=== PATIENT | female | born 1990 ===

== ENCOUNTER 2018-01-29 22:33 | Emergency (ER) | payer SELFPAY ==
[2018-01-29 23:39] VITALS: BMI 29.9
[2018-01-29 23:52] LABS: SQUAMOUS EPITHIAL 19 /hpf (0-5); URINE BACTERIA OCC (<OCC); URINE BILIRUBIN NEGATIVE (NEGATIVE); URINE BLOOD NEGATIVE (NEGATIVE); URINE CLARITY CLOUDY (Clear); URINE COLOR YELLOW (YELLOW); URINE GLUCOSE (UA) NEG (Normal); URINE LEUKOCYTE ESTERASE SMALL Leu/uL (Negative); URINE NITRATE NEGATIVE (NEGATIVE); URINE PROTEIN NEGATIVE (NEGATIVE); URINE UROBILINOGEN 0.2-1.0 mg/dL (0.2-1.0)
--- NOTE | 2018-01-30 03:12 | US ---
EXAM: US Retroperitoneal Limited, Renal CLINICAL HISTORY: 27 years old, female; Pain; Other: Back pain; ; Additional info: B/l flank pain(r>l) for 1 day TECHNIQUE: Real-time ultrasound of the retroperitoneum (limited) with image documentation. 28 images are submitted. COMPARISON: No relevant prior studies available. FINDINGS: Right kidney: The right kidney measures 9.5 x 4.9 x 5.8 cm. There is minimal fullness of right renal pelvis. No stones. Left kidney: The left kidney measures 10.3 x 5.4 x 4.4 cm. There is minimal fullness of left renal pelvis. No stones. Bladder: No bladder images are submitted. The bladder is not evaluated. The technologist will be contacted for additional images if required. As the technologist states bilateral ureteral jets were not seen. Other findings: Patient is 37 weeks with back pain. IMPRESSION: No acute findings. No bladder images are submitted. The bladder is not evaluated. The technologist will be contacted for additional images if required. As the technologist states bilateral ureteral jets were not seen. The technologist will be contacted. Additional images if there will be requested and an addendum will be added.
--- NOTE | 2018-01-30 04:00 | OBHP ---
Datetime: 01/29/2018 23:39 IP Adm Impression: , intrauterine ; No Active Labor IP Chief Complaint Other: abdominal pain and dysuria IP Admit Plan: Observation/Evaluation; Discharge home Admit Comment, IP Provider: 27 yo at 35.4 weeks GA based on LMP 05/25/17, C/W first trimester US, ANATOLY 03/01/18 presents to [facility] with c/o B/L lower abdominal pain, dysuria and flank pain (R>L) sinc e this morning. Denies any trauma to abdomen.Denies hematuria, fever, or chills. Pt reports she vomit s once a day which is normal for her pregnacy. Pt took 2 tylenol about 3 hours ago with no relief of pain. Reports +FM. Denies LOF, VB or CTX. Pt was treated for UTI in mid dec 2017 with macrobid 100 m g po bid for 7 days and states she completed the course. PNC: [facility] Past obhx: X 1 in 2014 at 40 weeks GA, baby's wt 7 lb 6oz w/o complication. Past gynhx; hx chlamydia in 2014 treated, neg pap on 08/04/17 Pmhx: denies pshx: denies social hx: denies smoking cigarettes, drinking EtOH or using drugs family hx: hx Down Syndrome in pt's cousin Medication: PNV Allergies: PCN Assessment: 27 yo IUP@ 35.4 weeks GA reports dysuria and abdominal pain x 1 day Plan: Continuous heart tracing UA and urine cx B/L renal US SVE: cervix is closed, thick and high Re-evaluate Sultan Willis, PGY-1 Pt seen and examined with on-call OB hospitalist Dr. Rivas OB Hospitalist Addendum: Pt seen and examined by me. Agree w/ above. 27 yo at 35+5 wks w/ c/o b/l lower abdominal pain and back pain since yesterday am. Pt also reports dysuria. Pt denie s VB, LOF, ctxns and reports FM. Pt's reports that she completed macrobid 2 weeks ago. UA 1 9 Sq epi. blood and nitrate neg, bacteria occ. Urine cx pending. Renal u/s w/ no acute findings. NS T reactive. Pt discharged home, has f/u appoint w/ clinic on 02/05/2018. (ES) Extremities - PN: Normal Lungs - PN: Normal Heart - PN: Normal Neurologic - PN: Normal HEENT - PN: Normal General - PN: Normal FHR - Baseline A Provider: 130s Membranes, Provider: Intact Contraction Comments Provider: None Comments, ACOG Physical Exam: SVE: cervix is closed, thick and high Abdomen: B/L lower lateral abdominal mild tenderness, likely ligaments stretch. No suprapubic tend erness. No guarding or rigidity. Mild right CVA tenderness. IP Hx Assessment: The History has been Reviewed and is Current Vital Signs Provider: Reviewed IP Chief Complaint: Maternal discomfort; Other NICHD Variability Prov Fetus A: Moderate 6-25bpm NICHD Accel Fetus A IP Provider: 15X15 FHR Category Provider Fetus A: Category I Dilatation, Provider: 0 Effacement, Provider: 0 Station, Provider: -3 Genitourinary Exam: Normal
[2018-01-30 08:49] VITALS: BP 91/57; PULSE 103; RESP 18; TEMP 98.2; O2SAT 100
== END 2018-01-30 03:55 | disposition home or self-care (01) ==
LOC: H.EROB2 22:33
DX: O23.43 Unspecified infection of urinary tract in pregnancy, third trimester (principal); O26.93 Pregnancy related conditions, unspecified, third trimester; R10.2 Pelvic and perineal pain; Z3A.35 35 weeks gestation of pregnancy

== ENCOUNTER 2018-02-20 08:08 | Inpatient (IN) | payer MEDICAID, SELFPAY ==
[2018-02-20 08:37] VITALS: BMI 30.2
[2018-02-20] MEDS ORDERED: Lactated Ringer's 1,000 ML IV SCH ×2 (08:45)
[2018-02-20] MEDS ORDERED: Oxytocin 30 units/LR 500ML 30 U/500 ML BAG IV SCH (08:45)
[2018-02-20 09:20] LABS: BASO % 0.4 % (0.0-2.0); EOS # 0.1 K/uL (0.0-0.7); EOS % 1.5 % (0.0-4.0); HEMOGLOBIN 11.7 g/dL (12.0-16.0); LYMPH # 1.7 K/uL (1.0-4.3); LYMPH % 24.3 % (20.0-40.0); MEAN CELL VOLUME 90.5 fl (81.0-99.0); MEAN CORPUSCULAR HEMOGLOBIN 30.8 pg (27.0-31.0); MEAN PLATELET VOLUME 9.2 fl (7.2-11.7); MONO # 0.6 K/uL (0.0-0.8); MONO % 8.9 % (0.0-10.0); NEUT # 4.4 K/uL (1.8-7.0); NEUT % 64.9 % (50.0-75.0); NRBC % 0.1 % (0.0-0.0); RBC 3.79 Mil/uL (3.80-5.20); RED CELL DISTRIBUTION WIDTH 14.4 % (11.5-14.5); WHITE BLOOD COUNT 6.8 K/uL (4.8-10.8)
--- NOTE | 2018-02-20 09:27 | OBPN ---
Datetime: 02/20/2018 09:10 IP Progress Impression: Reassuring heart rate; Reactive non-stress test IP Informed Consent Obtain: Vaginal Delivery; Risks, Benefits and Alternatives Discussed IP Procedures: Artificial ROM IP Progress Plan: Augmentation; Anticipate Vaginal Delivery Pool Provider: Positive Membranes, Provider: Ruptured Amniotic Fluid Color, Provider: Clear Contraction Comments Provider: 2-5m FHR - Baseline A Provider: 140 Presentation-Admit: Vertex IP Progress Note Comment: OB Hospitalist on-call - Sign out rec'd Admitted for early labor chart rev'd - echo to be rev'd by peds/ Pt may deliver at [facility] as per Dr Kang PMD at [facility] A: Term preg / latent phase of labor PLAN: Discussion with ad about labor, pain meds, augmentation, delivrey and . She understood. AROM clear fluid; start piotcin augmentation NICHD Accel Fetus A IP Provider: 15X15 FHR Category Provider Fetus A: Category I NICHD Variability Prov Fetus A: Moderate 6-25bpm Dilatation, Provider: 4 Effacement, Provider: 50 Station, Provider: -2 NICHD Decel Fetus A IP Provider: None Datetime: 02/20/2018 08:50 Vital Signs Provider: Reviewed
[2018-02-20] MEDS ORDERED: Benzocaine/Menthol SPRAY TOP PRN ×2 (10:52→14:04)
[2018-02-20] MEDS ORDERED: Oxycodone/Acetaminophen 5/325 mg Tab PO PRN ×2 (10:52→14:04)
[2018-02-21 06:51] LABS: HEMOGLOBIN 10.9 g/dL (12.0-16.0); MEAN CELL VOLUME 89.8 fl (81.0-99.0); MEAN CORPUSCULAR HGB CONC 34.5 g/dL (33.0-37.0); RBC 3.51 Mil/uL (3.80-5.20); RED CELL DISTRIBUTION WIDTH 14.5 % (11.5-14.5); WHITE BLOOD COUNT 7.5 K/uL (4.8-10.8)
[2018-02-21] MEDS ORDERED: Multivitamin With Minerals Tab PO SCH (09:00)
[2018-02-21] MEDS: Multivitamin With Minerals Tab PO SCH (09:47)
--- NOTE | 2018-02-21 15:00 | OBPPN ---
Datetime: 02/21/2018 06:02 PP Pain Prov: Within normal limits PP Nausea Prov: Denies PP Flatus Prov: No PP BM Prov: No PP Breasts Prov: Not Done PP Heart Prov: Normal PP Lungs Prov: Normal PP Abdomen/Uterus Prov: Normal PP Lochia Prov: Normal PP Vulva/Perineum Prov: Not Done PP CVA Tenderness Prov: Normal PP Extremities Prov: Normal PP C/S Incision Prov: Not Applicable PP Progress Prov: Normal PP Impression Prov: Normal progression PP Plan Prov: Continue present management PP Progress Note Prov: 27 y/o F now , s/p on 02/20/18. Pt reports feeling well. Pelvic pain is well controlled with medication. Pt afebrile, tolerating PO, has good appetite with NO acute events overnight. Pt able to ambulate. Pt voiding with no issues, passing gases but NO bowel movement yet. Pt with NO diffi culties. Lochia is more than menses as per pt. Pt denies headache, dizziness, CP, SOB, N/V or calf te nderness All systems reviewed and negative except as above. O: PE: -Gen: A_O, resting comfortably on bed, NAD. -Lungs: CTAB, No W/R/R. -CV: RRR, S1 and S2 present. -ABD: soft, BS +, firm fundus at umbilicus. -EXT: No cyanosis, non-tender calves. A/P: 33 y/o F on PPD 1, stable, recovering well from NVD. --Continue post- management -- and ambulation encouraged. --Anticipated discharge Case discussed with OB airborne weapons technical manager Theresa PGY-1 The patient was seen with the resident I agree with the note IP PP Procedures: None Vital Signs Provider PP: Reviewed
[2018-02-21] MEDS: Hydrocortisone-Pramoxine 1%-1% Foam(10 gm) TOP SCH (17:20)
[2018-02-22] MEDS: Multivitamin With Minerals Tab PO SCH (10:11)
[2018-02-22] MEDS: Hydrocortisone-Pramoxine 1%-1% Foam(10 gm) TOP SCH (10:12)
[2018-02-22 17:53] VITALS: BP 100/58; PULSE 115; RESP 20; TEMP 98.3
== END 2018-02-22 13:30 | disposition home or self-care (01) | DRG 775 ==
LOC: H.EROB2 08:08 → H.L&D 08:09 → H.EROB2 08:43 → H.OB/GYN 12:49
PROVIDERS: ADMIT Obstetrics & Gynecology; ATTEND Obstetrics & Gynecology
PROC: 10E0XZZ Delivery of Products of Conception, External Approach (ICD-10-PCS; principal; 2018-02-20)
PROC: 10907ZC Drainage of Amniotic Fluid, Therapeutic from Products of Conception, Via Natural or Artificial Opening (ICD-10-PCS; 2018-02-20)
DX: O80 Encounter for full-term uncomplicated delivery (principal); Z3A.38 38 weeks gestation of pregnancy; Z37.0 Single live birth; Z88.0 Allergy status to penicillin

== ENCOUNTER 2019-03-30 17:31 | Emergency (ER) | payer SELFPAY ==
[2019-03-30 17:32] VITALS: BMI 30.2
[2019-03-30 18:11] VITALS: RESP 16; O2SAT 99
--- NOTE | 2019-03-30 19:12 | ED PDOC ---
HPI: Headache Time Seen by Provider: 03/30/19 18:17 Chief Complaint (Nursing): Headache Chief Complaint (Provider): Left sided facial weakness History Per: Patient History/Exam Limitations: no limitations Onset/Duration Of Symptoms: Days (x2) Current Symptoms Are (Timing): Still Present Additional Complaint(s): 28 y/o female presents to the ER with left sided facial weakness. Patient reports she woke up with the feeling of numbness to the lower part of the left face yesterday associated with generalized malaise, fatigue, mild headache, and mild neck pain. Patient went to [facility] where they did blood work and urine test and diagnosed her with UTI and discharged her. However, patient reports numbness now involves her entire left side of the face including the forehead. PMD: Clinic Past Medical History Reviewed: Historical Data, Nursing Documentation, Vital Signs Vital Signs: Last Vital Signs Temp 97.8 F 03/30/19 18:06 Pulse 83 03/30/19 18:06 Resp 16 03/30/19 18:06 BP 101/63 03/30/19 18:06 Pulse Ox 99 03/30/19 18:06 Primary Care Provider: CHANTELL GONZALEZ - Medical History PMH: No Chronic Diseases Denies: Depression, Diabetes, HTN - Surgical History Surgical History: No Surg Hx - Family History Family History: States: No Known Family Hx - Social History Current smoker - smoking cessation education provided: No - Home Medications Home Medications: Ambulatory Orders Medication Instructions Recorded Hydrocortisone-Pramoxine 1%-1% 1 gm TOP QID 30 Days aer 02/22/18 [Proctofoam] Ibuprofen [Motrin Tab] 600 mg PO Q6 PRN #30 tab 02/22/18 Witch Aidee [Tucks] 1 pad TP TID pad 02/22/18 Acyclovir [Zovirax] 400 mg PO 5XD #50 tablet 03/30/19 predniSONE [Prednisone] 60 mg PO DAILY 10 Days tab 03/30/19 - Allergies Allergies/Adverse Reactions: Allergies Allergy/AdvReac Type Severity Reaction Status Date / Time Penicillins Allergy RASH Verified 09/26/16 08:17 Review of Systems ROS Statement: Except As Marked, All Systems Reviewed And Found Negative (as per HPI) Constitutional: Positive for: Malaise (and fatigue) Musculoskeletal: Positive for: Neck Pain (mild) Neurological: Positive for: Weakness (left sided facial weakness), Numbness (entire left side of face), Headache (mild) Physical Exam - Reviewed Nursing Documentation Reviewed: Yes Vital Signs Reviewed: Yes - Physical Exam Appears: Positive for: No Acute Distress Head Exam: Positive for: ATRAUMATIC, NORMOCEPHALIC Skin: Positive for: Warm, Dry Eye Exam: Positive for: EOMI, PERRL ENT: Negative for: Pharyngeal Erythema, Tonsillar Exudate Neck: Positive for: Painless ROM, Supple Cardiovascular/Chest: Positive for: Regular Rate, Rhythm. Negative for: Murmur Respiratory: Positive for: Normal Breath Sounds. Negative for: Respiratory Distress Gastrointestinal/Abdominal: Positive for: Soft. Negative for: Tenderness Back: Positive for: Normal Inspection. Negative for: Decreased ROM Extremity: Positive for: Other (5/5 strength in all extremities) Lymphatic: Negative for: Adenopathy Neurological/Psych: Positive for: Awake, Alert, Oriented (x3), Gait (steady), Cerebellar Tests (normal finger to nose), Facial Droop (LEFT). Negative for: Motor/Sensory Deficits Comments: HEAD: left facial droop that involves the left brow with more pronounce loss of motor function of the lower face. (-) tenderness to palpation to temporal area. - ECG O2 Sat by Pulse Oximetry: 99 (RA) Pulse Ox Interpretation: Normal Medical Decision Making Medical Decision Making: Initial Impression: Patton's palsy r/o intracerebral mass or lesion Pt already underwent bloodwork in [place]. Initial Plan: --CT head --ED urine --ED urine dipstick 19:24 CT head FINDINGS: BRAIN: No acute intraparenchymal hemorrhage. No mass lesion. No CT evidence for acute territorial infarct. No midline shift or extra-axial collections. VENTRICLES: No hydrocephalus. ORBITS: The orbits are unremarkable. SINUSES AND MASTOIDS: The paranasal sinuses and mastoid air cells are clear. BONES: No fracture. SOFT TISSUES: Unremarkable. IMPRESSION: No acute intracranial abnormality. Scribe Attestation: Documented by Melquiades Russo acting as a scribe for Anusha Cavanaugh MD. Provider Scribe Attestation: All medical record entries made by the Scribe were at my direction and personally dictated by me. I have reviewed the chart and agree that the record accurately reflects my personal performance of the history, physical exam, medical decision making, and the department course for this patient. I have also personally directed, reviewed, and agree with the discharge instructions and disposition. Disposition - Clinical Impression Clinical Impression: Patton's palsy - Disposition Referrals: [facility] [Outside] - 04/08/19 ([facility] EN 1-2 SEMANAS) Disposition: Routine/Home Disposition Time: 20:00 Condition: STABLE Prescriptions: Acyclovir [Zovirax] 400 mg PO 5XD #50 tablet predniSONE [Prednisone] 60 mg PO DAILY 10 Days tab Instructions: Patton's Palsy (DC) Print Language: ICELANDIC
[2019-03-30 20:51] VITALS: BP 102/57; PULSE 80; TEMP 98.1
--- NOTE | 2019-03-31 12:01 | CT ---
Date of service: 03/30/2019 PROCEDURE: CT HEAD WITHOUT CONTRAST. HISTORY: LEFT side facial weakness COMPARISON: None available. TECHNIQUE: Axial computed tomography images were obtained through the head/brain without intravenous contrast. Radiation dose: Total exam DLP = 910.8 mGy-cm. This CT exam was performed using one or more of the following dose reduction techniques: Automated exposure control, adjustment of the mA and/or kV according to patient size, and/or use of iterative reconstruction technique. FINDINGS: HEMORRHAGE: No intracranial hemorrhage. BRAIN: No mass effect or edema. No atrophy or chronic microvascular ischemic changes. VENTRICLES: No obstructive hydrocephalus. CALVARIUM: Unremarkable. PARANASAL SINUSES: Minor mucosal thickening right maxillary antrum and 1 or 2 right-sided ethmoid air cells MASTOID AIR CELLS: Unremarkable as visualized. No inflammatory changes. OTHER FINDINGS: None. IMPRESSION: No acute intracranial hemorrhage. If symptoms persist or acute infarct suspected clinically recommend emergent MRI further evaluation.
== END 2019-03-30 20:49 | disposition home or self-care (01) ==
LOC: H.ER 17:31
DX: G51.0 Bell's palsy (principal)